=== PATIENT | male | born 1985 | race Caucasian/White ===

== ENCOUNTER 2016-10-17 13:06 | Emergency (ER) | payer OTHER ==
--- NOTE | 2016-10-26 18:52 | ER ---
ADMIT: 10/17/2016 RM/LOC: ER [facility] MR#: [id number] [place], [place] [id number] LASHAUN CORTEZ [address] [place] [address] Emergency Room Report SEX: M AGE: 31 : 1985 DATE: 10/17/2016 ADDENDUM: This patient comes to the ER because he became very lightheaded and sweaty and dizzy prior to arrival. He states he did a pre-workout energy drink then drank a large container full of green tea. He had been very sleepy from his workout activity and not sleeping well, and because of the sleepiness, he decided to drink a monster drink. After drinking the monster drink, which also contained a lot of caffeine, he started to feel ill. By the time he got to the ER, most of his symptoms have subsided, and he really did not have any pain or dizziness or lightheadedness. IV of normal saline was started. He was given a liter of bolus. He is able to keep fluids down without any difficulty. His CBC, CMP and urinalysis were negative. EKG showed a normal sinus rhythm. I did consult with Dr. Martinez concerning treatment of this patient. The patient was discharged. He is to follow up with his primary as needed. Please see my T-sheet. KAMILAH Avila / Leif Martinez MD / nasreen JOB #: [id number] CC: Leif Martinez MD, Attending Physician UNKNOWN, Family Physician
== END 2016-10-17 15:17 | disposition home or self-care (01) ==
LOC: ER 13:06 → EDBD 13:06 → ER 15:17
DX: R42 Dizziness and giddiness (principal); G47.30 Sleep apnea, unspecified; F17.210 Nicotine dependence, cigarettes, uncomplicated; Z88.1 Allergy status to other antibiotic agents